=== PATIENT | male | born 1945 | race Asian ===

== ENCOUNTER 2021-04-23 18:57 | Emergency (ER) | payer MEDICAID ==
[~2021-04-23] VITALS: Ht 162.6 cm; Wt 55.3 kg
[2021-04-23 19:42] VITALS: BP_SYST 135
[2021-04-23] MEDS ORDERED: OMEP40CA20 PO (19:47)
--- NOTE | 2021-04-23 19:51 | NUR ---
PT BIB FAMILY WITH COMPLIANT OF NO BM X 5 DAYS. PT WAS GIVEN STOOL SOFTNER AT HOME WITH NO RESULTS. DENIES N/V. DENIES TENDERNESS UPON PALPATION TO ABD. DECREASED APPETITE LAST 5 DAYS. PT ON GURNEY, BED IN LOWEST POSITION, LOCKED, AND SIDERAIL UP X 1. SON AT BEDSIDE
--- NOTE | 2021-04-23 19:54 | NUR ---
MD AT BEDSIDE SPESKING WITH PT AND FAMILY
[2021-04-23] MEDS: MAGNESIUM CITRATE 300 ML ORAL SOLUTION PO ONE (20:46)
[2021-04-23] MEDS: SODIUM PHOSPHATE,MONO-DIBASIC 133 ML ENEMA RC ONE (20:55)
--- NOTE | 2021-04-23 20:55 | NUR ---
ADMINISTERED MAG CITRATE AND FLEETS ENEMA. PT LAYING ON SIDE, ADVISED TO HOLD ENEMA IN LONG POSSIBLE. CHUX AND BEDPAN UNDER PT.
--- NOTE | 2021-04-23 21:11 | NUR ---
PT STILL HAVING NO BM. DENIES ANY PAIN N/V. WILL CONTINUE TO MONITOR
--- NOTE | 2021-04-23 21:23 | NUR ---
PT HAD SMALL BM IN BEDPAN, HE WANTED TO WALK TO THE RESTROOM TO TRY AND GO MORE. PT AMBULATED WITH STEADY GAIT TO RESTROOM
--- NOTE | 2021-04-23 21:33 | NUR ---
PT TOLD SON HE HAD BM WHILE IN BATHROOM, AWARE
[2021-04-23] MEDS ORDERED: NA P133E41 RC (21:34)
[2021-04-23] MEDS ORDERED: DOCU250C14 PO (21:34)
[2021-04-23] MEDS ORDERED: POLY17PO4 PO (21:34)
[2021-04-23 21:53] VITALS: BP_SYST 135
--- NOTE | 2021-04-23 21:54 | NUR ---
Patient given written and verbal discharge instructions and verbalizes understanding. ER MD discussed with patient the results and treatment provided. Patient in stable condition. ID arm band removed. Rx of FLEETS ENEMA COLACE,MIRALAX given. Patient educated on pain management and to follow up with PMD. Pain Scale 0. Opportunity for questions provided and answered. Medication side effect fact sheet provided.
== END 2021-04-23 21:54 | disposition home or self-care (01) ==
LOC: SED 18:57
DX: K59.00 Constipation, unspecified (principal); Z79.899 Other long term (current) drug therapy
CPT/HCPCS: 99284